=== PATIENT | female | born 1995 ===

== ENCOUNTER 2017-02-13 08:28 | Inpatient (IN) | payer MEDICAID ==
[2017-02-13 09:46] LABS: BASO % 0.5 % (0.0-2.0); EOS # 0.6 K/uL (0.0-0.7); EOS % 7.1 % (0.0-4.0); LYMPH # 2.3 K/uL (1.0-4.3); LYMPH % 29.2 % (20.0-40.0); MEAN CELL VOLUME 81.2 fL (81.0-99.0); MEAN CORPUSCULAR HEMOGLOBIN 27.1 pg (27.0-31.0); MEAN CORPUSCULAR HGB CONC 33.3 g/dL (33.0-37.0); MEAN PLATELET VOLUME 7.2 fL (7.2-11.7); MONO # 0.4 K/uL (0.0-0.8); MONO % 4.5 % (0.0-10.0); NRBC % 0.1 % (0.0-2.0); WHITE BLOOD COUNT 7.8 K/uL (4.8-10.8)
[2017-02-13 09:55] LABS: RBC URINE 21 /hpf (0-3); URINE BACTERIA RARE (<OCC); URINE BILIRUBIN NEGATIVE (NEGATIVE); URINE BLOOD 1+ (NEGATIVE); URINE COLOR Yellow (YELLOW); URINE GLUCOSE (UA) NORMAL (Normal); URINE KETONE TRACE mg/dL (NEGATIVE); URINE LEUKOCYTE ESTERASE NEG Leu/uL (Negative); URINE PROTEIN NEGATIVE (NEGATIVE); URINE UROBILINOGEN NORMAL mg/dL (0.2-1.0); WBC URINE 4 /hpf (0-5)
[2017-02-13 10:02] LABS: CHLORIDE 99 mmol/L (98-107); POTASSIUM 3.8 mmol/L (3.6-5.2); SODIUM 140 mmol/L (132-148)
[2017-02-13 10:04] LABS: AST/SGOT 45 U/L (14-36); BILIRUBIN,TOTAL 0.6 mg/dL (0.2-1.3); CARBON DIOXIDE 25 mmol/L (22-30); GFR AFRICAN-AMERICAN > 60
[2017-02-13 10:05] LABS: ALB/GLOB RATIO 1.3 (1.0-2.1); ALKALINE PHOSPHATASE 85 U/L (38-126); ALT/SGPT 52 U/L (9-52); BLOOD UREA NITROGEN 4 mg/dL (7-17); CALCIUM 8.7 mg/dl (8.6-10.4); GLUCOSE,RANDOM 102 mg/dL (65-105); TOTAL PROTEIN 8.4 g/dL (6.3-8.3)
--- NOTE | 2017-02-13 10:07 | C.PDOC ---
History Of Present Illness 21 y/o female presents to the ED complaining of increasing rash to the right elbow. She started that it started out small but she scratched it and it has been increasing in size. Patient reports that she saw her PMD who started her on two antibiotics approximately one week ago with no resolution. Patient denies fever, shortness of breath, or other complaints. Chief Complaint (Nursing): Allergic Reaction History Per: Patient History/Exam Limitations: no limitations Onset/Duration Of Symptoms: Days, Gradual, Persistent Current Symptoms Are (Timing): Worse Possible Cause: Unknown Associated Symptoms: Skin Rash Home/EMS Treatment: Other (antibiotics from PMD) Recent travel outside of the [place]: No Past Medical History Reviewed: Historical Data, Nursing Documentation, Vital Signs Vital Signs: Last Vital Signs Temp 97.5 F L 02/13/17 08:32 Pulse 110 H 02/13/17 08:32 Resp 16 02/13/17 08:32 BP 114/83 02/13/17 08:32 Pulse Ox 97 02/13/17 11:14 - Medical History PMH: Hypothyroidism Surgical History: No Surg Hx Family History: States: Unknown Family Hx - Social History Hx Tobacco Use: No Hx Alcohol Use: No Hx Substance Use: No - Immunization History Hx Tetanus Toxoid Vaccination: No Hx Influenza Vaccination: No Hx Pneumococcal Vaccination: No Review Of Systems Except As Marked, All Systems Reviewed And Found Negative. Constitutional: Negative for: Fever Respiratory: Negative for: Shortness of Breath Skin: Positive for: Rash (right elbow) Physical Exam - Physical Exam Appears: Non-toxic, No Acute Distress Skin: Warm, Dry Head: Atraumatic, Normacephalic Neck: Normal ROM Chest: Symmetrical Cardiovascular: Rhythm Regular Respiratory: Normal Breath Sounds, No Rales, No Rhonchi, No Wheezing Extremity: Other (scaley rash to right elbow, warm to touch w/ slight decreased ROM in the right elbow) Pulses: Left Radial: Normal, Right Radial: Normal Neurological/Psych: Oriented x3, Normal Speech, Normal Cognition, Normal Sensation ED Course And Treatment - Laboratory Results Result Diagrams: 02/13/17 09:41 02/13/17 09:41 O2 Sat by Pulse Oximetry: 97 (ra) Pulse Ox Interpretation: Normal Medical Decision Making Medical Decision Making: Plan: * Blood Work * Blood Culture * Urinalysis, Urine HCG * Urine Culture Case discussed with Dr. Hutton who requests admission. Disposition - Disposition Disposition Time: 10:10 Condition: STABLE - Clinical Impression Clinical Impression: Cellulitis of right upper extremity - Scribe Statement The provider has reviewed the documentation as recorded by the Scribe (Ayala Caceres) Provider Attestation: All medical record entries made by the Scribe were at my direction and personally dictated by me. I have reviewed the chart and agree that the record accurately reflects my personal performance of the history, physical exam, medical decision making, and the department course for this patient. I have also personally directed, reviewed, and agree with the discharge instructions and disposition.
[2017-02-13] MEDS ORDERED: Oxycodone/Acetaminophen 5/325 mg Tab PO PRN (12:27)
[2017-02-13] MEDS: Sodium Chloride 0.9% 1,000 ML IV SCH (14:11)
[2017-02-13] MEDS ORDERED: Enoxaparin 40 mg Syringe ONE (15:01)
[2017-02-13] MEDS: Enoxaparin 40 mg Syringe SC SCH (15:08)
--- NOTE | 2017-02-13 18:47 | CP.PCM.HP ---
History of Present Illness - History of Present Illness History of Present Illness: 21 years old female patient with past medical history of hypothyroidism presents to the emergency department with complaint of increasing right elbow rash. Patient showed PCP started on antibiotics whivh didnt resolve rash. No complaints No any other past medical history Present on Admission - Present on Admission Any Indicators Present on Admission: No Past Patient History - Past Social History Smoking Status: Never Smoked - ENDOCRINE/METABOLIC Hx Hypothyroidism: Yes - PSYCHIATRIC Hx Substance Use: No - SURGICAL HISTORY Hx Surgeries: No - ANESTHESIA Hx Anesthesia: No Meds Home Medications: Home Medication List Medication Instructions Recorded Confirmed Type DiphenhydrAMINE [Benadryl] 50 mg PO Q8 PRN #15 cap 02/18/17 Rx Sulfamethoxazole/Trimethoprim 1 tab PO Q12 #20 tab 02/18/17 Rx [Bactrim DS Tab] Allergies/Adverse Reactions: Allergies Allergy/AdvReac Type Severity Reaction Status Date / Time amoxicillin trihydrate Allergy Verified 02/13/17 08:34 [From Augmentin] clindamycin Allergy Verified 02/13/17 08:36 potassium clavulanate Allergy Verified 02/13/17 08:34 [From Augmentin] Results - Vital Signs Recent Vital Signs: Last Vital Signs Temp 98.7 F 02/13/17 17:30 Pulse 101 H 02/13/17 17:30 Resp 20 02/13/17 17:30 BP 108/70 02/13/17 17:30 Pulse Ox 108 H 02/13/17 17:30 - Labs Result Diagrams: 02/18/17 07:10 02/18/17 07:10 Assessment & Plan (1) Abscess, elbow Status: Acute (2) Cellulitis of right arm Status: Acute (3) Drug-induced skin rash Status: Acute - Assessment and Plan (Free Text) Plan: septic wokr up protnix lovenox vanco vanco level zosyn no othe rocmpalints
[2017-02-13] MEDS ORDERED: Piperacillin/Tazobact 3.375 GM in Sodium Chloride 100 ML IVPB SCH (19:00)
[2017-02-13] MEDS: Vancomycin 1 gm/NS 200 ml 200 ML IVPB SCH (23:01)
[2017-02-14] MEDS: Aztreonam 1 GM in Sodium Chloride 0.9% 100 ML IVPB SCH ×5 (01:18→19:47)
[2017-02-14] MEDS ORDERED: Pneumococcal 23-Valent Vaccine IM ONE (02:21)
[2017-02-14] MEDS: Sodium Chloride 0.9% 1,000 ML IV SCH ×2 (06:00→21:48)
[2017-02-14 07:55] LABS: BASO % 0.2 % (0.0-2.0); EOS # 0.4 K/uL (0.0-0.7); EOS % 5.4 % (0.0-4.0); HEMATOCRIT 38.9 % (34.0-47.0); LYMPH # 3.6 K/uL (1.0-4.3); MEAN CELL VOLUME 81.6 fL (81.0-99.0); MEAN CORPUSCULAR HEMOGLOBIN 26.6 pg (27.0-31.0); MEAN CORPUSCULAR HGB CONC 32.6 g/dL (33.0-37.0); MEAN PLATELET VOLUME 7.4 fL (7.2-11.7); MONO # 0.5 K/uL (0.0-0.8); MONO % 5.9 % (0.0-10.0); WHITE BLOOD COUNT 7.8 K/uL (4.8-10.8)
[2017-02-14 08:09] LABS: ALB/GLOB RATIO 1.2 (1.0-2.1); BILIRUBIN,DIRECT 0.8 mg/dL (0.0-0.4); BILIRUBIN,TOTAL 0.8 mg/dL (0.2-1.3); TOTAL PROTEIN 7.6 g/dL (6.3-8.3)
[2017-02-14] MEDS: Enoxaparin 40 mg Syringe SC SCH (09:09)
[2017-02-14] MEDS: Vancomycin 1 gm/NS 200 ml 200 ML IVPB SCH ×2 (09:55→22:41)
--- NOTE | 2017-02-14 13:22 | CP.PCM.CON ---
History of Present Illness - History of Present Illness History of Present Illness: HPI; 21 y/o female presents to the ED complaining of increasing rash to the right elbow. She states that it started out as a small pimple but she scratched it and it has been increasing in size. Patient reports that she saw her PMD who started her on two antibiotics approximately one week ago with no resolution. Patient denies fever, shortness of breath, or other complaints.admits to having a sore throat a week ago. Patient was started on IV vancomycin and IV Zosyn but Zosyn was held in view of patient's stating that she is allergic to amoxicillin. Infectious disease consultation requested therefore by the primary M.D. PATIENT DENIES ANY HEADACHES, NAUSEA OR VOMITING OR DIARRHEA. PATIENT DENIES ANY RECENT TRAVEL/CAMPING. DENIES INSECT BITES. PATIENT DENIES ANY HISTORY OFF HEPATITIS,STDS OR ECZEMA IN THE PAST. PT DOES HAVE HX OF SECONDARY AMENORRHOEA SINCE SEP 2016.HER DRBobTOLD HER SHE HAS HX OF HORMONAL IMBALANCE AND NEEDS TO SEE RIBBER. ALLERGY PMH: Hypothyroidism Surgical History: No Surg Hx Family History: States: Unknown Family Hx - Social History Hx Tobacco Use: No Hx Alcohol Use: No Hx Substance Use: No - Immunization History Hx Tetanus Toxoid Vaccination: No Hx Influenza Vaccination: No Hx Pneumococcal Vaccination: No Review of Systems - Constitutional Constitutional: absent: Chills, Fever - EENT Eyes: absent: Change in Vision, Floaters Nose/Mouth/Throat: absent: Dysphagia, Mouth Lesions, Sore Throat, Facial Pain - Cardiovascular Cardiovascular: absent: Chest Pain, Dyspnea - Respiratory Respiratory: absent: Cough, Chest Congestion - Gastrointestinal Gastrointestinal: absent: Diarrhea, Nausea, Vomiting - Genitourinary Genitourinary: absent: Dysuria, Urinary Hesitance, Freq UTI, Hx /Renal Surgery - Reproductive: Female Reproductive:Female: Cycle Variable, No Menses for 6 Months, Spotting Between Cycles. absent: Pelvic Pain, Vaginal Discharge - Musculoskeletal Musculoskeletal: absent: Arthralgias, Muscle Weakness, Numbness, Radiating Pain into Limb, Tingling - Integumentary Integumentary: Skin Ulcer (RIGHT ELBOW WITH A RASH WHICH IS SCALY AND DRY. CELLULITIS EXTENDING TO THE FOREARM AND SOFT TISSUE EDEMA.). absent: Alopecia, Change in Hair, Change in Nails - Neurological Neurological: absent: Dizziness, Headaches, Paresthesias - Psychiatric Psychiatric: absent: Depression - Endocrine Endocrine: As Per HPI - Hematologic/Lymphatic Hematologic: As Per HPI. absent: Easy Bruising, Lymphadenopathy Past Patient History - Past Medical History & Family History Past Medical History?: Yes - Past Social History Smoking Status: Never Smoked - CARDIAC Hx Cardiac Disorders: No - PULMONARY Hx Respiratory Disorders: No - NEUROLOGICAL Hx Neurological Disorder: No - HEENT Hx HEENT Problems: No - RENAL Hx Chronic Kidney Disease: No - ENDOCRINE/METABOLIC Hx Hypothyroidism: Yes - HEMATOLOGICAL/ONCOLOGICAL Hx Blood Disorders: No - INTEGUMENTARY Hx Dermatological Problems: No - MUSCULOSKELETAL/RHEUMATOLOGICAL Hx Musculoskeletal Disorders: No Hx Falls: No - GASTROINTESTINAL Hx Constipation: Yes - GENITOURINARY/GYNECOLOGICAL Hx Genitourinary Disorders: No - PSYCHIATRIC Hx Psychophysiologic Disorder: No Hx Substance Use: No - SURGICAL HISTORY Hx Surgeries: No - ANESTHESIA Hx Anesthesia: No Meds Allergies/Adverse Reactions: Allergies Allergy/AdvReac Type Severity Reaction Status Date / Time amoxicillin trihydrate Allergy Verified 02/13/17 08:34 [From Augmentin] clindamycin Allergy Verified 02/13/17 08:36 potassium clavulanate Allergy Verified 02/13/17 08:34 [From Augmentin] - Medications Medications: Current Medications Acetaminophen (Tylenol 325mg Tab) 650 mg PO Q6 PRN PRN Reason: Fever >100.4 F Diphenhydramine HCl (Benadryl) 25 mg PO Q8H PRN PRN Reason: Itching / Pruritus Last Admin: 02/14/17 06:42 Dose: 25 mg Docusate Sodium (Colace) 100 mg PO BID [facility] Last Admin: 02/14/17 09:11 Dose: Not Given Enoxaparin Sodium (Lovenox) 40 mg SC DAILY [facility] Last Admin: 02/14/17 09:09 Dose: 40 mg Sodium Chloride (Sodium Chloride 0.9%) 1,000 mls @ 60 mls/hr IV .[id number] [facility] Last Admin: 02/14/17 06:00 Dose: 60 mls/hr Vancomycin/Sodium Chloride (Vancocin) 200 mls @ 166.7 mls/hr IVPB Q12H [facility] Last Admin: 02/14/17 09:55 Dose: 166.7 mls/hr Aztreonam 1 gm/ Sodium (Chloride) 100 mls @ 100 mls/hr IVPB Q8H [facility] Last Admin: 02/14/17 07:51 Dose: 100 mls/hr Montelukast Sodium (Singulair) 10 mg PO HS [facility] Ondansetron HCl (Zofran Inj) 4 mg IVP Q6 PRN PRN Reason: Nausea/Vomiting Oxycodone/Acetaminophen (Percocet 5/325 Mg Tab) 1 tab PO Q4 PRN PRN Reason: Pain, moderate (4-7) Stop: 02/16/17 12:28 Pneumococcal Polyvalent Vaccine (Pneumovax 23 Vaccine) 0.5 ml IM .ONCE ONE Stop: 02/16/17 10:01 Sucralfate (Carafate Tab) 1 gm PO BIDAC [facility] Last Admin: 02/14/17 06:42 Dose: Not Given Physical Exam - Constitutional Appears: No Acute Distress - Head Exam Head Exam: NORMAL INSPECTION - Eye Exam Eye Exam: EOMI, PERRL - ENT Exam ENT Exam: Normal Oropharynx - Neck Exam Neck exam: Positive for: Normal Inspection - Respiratory Exam Respiratory Exam: Clear to Auscultation Bilateral - Cardiovascular Exam Cardiovascular Exam: REGULAR RHYTHM, +S1, +S2 - GI/Abdominal Exam GI & Abdominal Exam: Normal Bowel Sounds, Soft. absent: Organomegaly, Tenderness - Extremities Exam Extremities exam: Positive for: normal capillary refill, pedal pulses present. Negative for: calf tenderness, pedal edema - Neurological Exam Neurological exam: Alert, CN II-XII Intact, Oriented x3, Reflexes Normal - Psychiatric Exam Psychiatric exam: Normal Mood - Skin Skin Exam: Normal Color, Rash (RT.ELBOW SCALY RASH WITH CELLULITUS AND EDEMA EXTENDING TO THE FOREARMAND SWELLIND AND ST. EDEMA. DEC. ROM AT ELBOW.), Warm Results - Vital Signs Recent Vital Signs: Last Vital Signs Temp 97.6 F 02/14/17 09:00 Pulse 70 02/14/17 09:00 Resp 20 02/14/17 09:00 BP 113/76 02/14/17 09:00 Pulse Ox 100 02/14/17 09:00 - Labs Result Diagrams: 02/14/17 07:41 02/13/17 09:41 Labs: Laboratory Results - last 24 hr 02/14/17 07:41 WBC 7.8 RBC 4.76 Hgb 12.7 Hct 38.9 MCV 81.6 MCH 26.6 L MCHC 32.6 L RDW 15.0 H Plt Count 389 MPV 7.4 Neut % (Auto) 42.5 L Lymph % (Auto) 46.0 H [place] % (Auto) 5.9 Eos % (Auto) 5.4 H Baso % (Auto) 0.2 Neut # 3.3 Lymph # 3.6 [place] # 0.5 Eos # 0.4 Baso # 0.0 ESR 25 H Total Bilirubin 0.8 Direct Bilirubin 0.8 H AST 33 ALT 46 Alkaline Phosphatase 79 Total Protein 7.6 Albumin 4.2 Globulin 3.4 Albumin/Globulin Ratio 1.2 - Imaging and Cardiology MRI RUE Status: Report reviewed by me Assessment & Plan (1) Cellulitis of right arm Status: Acute (2) Abscess, elbow Status: Acute - Assessment and Plan (Free Text) Plan: PLAN; pANCULTURES. ESR, CRP. MRSA SCREEN THROAT CULTURE CONTINUE iv vANCO 1 G EVERY 12 HOURLY 02/13/17. WILL ADD IV AZACTAM 1 G EVERY 8 HOURLY FOR GRAM-NEGATIVE COVERAGE 02/13/17. SURGICAL CONSULT FOR I &D .-SEE MRI REPORT BACTOBAN OINTMENT LOCALLY TID. F/U LFTS fOLLOW-UP CULTURES TO ADJUST ANTIBIOTICS.
--- NOTE | 2017-02-14 14:39 | CP.PCM.PN ---
Subjective - Date & Time of Evaluation Date of Evaluation: 02/14/17 Time of Evaluation: 10:20 - Subjective Subjective: clinically same iv abx in progress Objective - Vital Signs/Intake and Output Vital Signs (last 24 hours): Temp Pulse Resp BP Pulse Ox 97.6 F 70 20 113/76 100 02/14/17 09:00 02/14/17 09:00 02/14/17 09:00 02/14/17 09:00 02/14/17 09:00 Intake and Output: 02/14/17 02/14/17 06:59 18:59 Intake Total 800 770 Balance 800 770 - Medications Medications: Current Medications Acetaminophen (Tylenol 325mg Tab) 650 mg PO Q6 PRN PRN Reason: Fever >100.4 F Diphenhydramine HCl (Benadryl) 25 mg PO Q8H PRN PRN Reason: Itching / Pruritus Last Admin: 02/14/17 06:42 Dose: 25 mg Docusate Sodium (Colace) 100 mg PO BID [facility] Last Admin: 02/14/17 09:11 Dose: Not Given Enoxaparin Sodium (Lovenox) 40 mg SC DAILY [facility] Last Admin: 02/14/17 09:09 Dose: 40 mg Sodium Chloride (Sodium Chloride 0.9%) 1,000 mls @ 60 mls/hr IV .[id number] [facility] Last Admin: 02/14/17 06:00 Dose: 60 mls/hr Vancomycin/Sodium Chloride (Vancocin) 200 mls @ 166.7 mls/hr IVPB Q12H [facility] Last Admin: 02/14/17 09:55 Dose: 166.7 mls/hr Aztreonam 1 gm/ Sodium (Chloride) 100 mls @ 100 mls/hr IVPB Q8H [facility] Last Admin: 02/14/17 07:51 Dose: 100 mls/hr Montelukast Sodium (Singulair) 10 mg PO HS [facility] Ondansetron HCl (Zofran Inj) 4 mg IVP Q6 PRN PRN Reason: Nausea/Vomiting Oxycodone/Acetaminophen (Percocet 5/325 Mg Tab) 1 tab PO Q4 PRN PRN Reason: Pain, moderate (4-7) Stop: 02/16/17 12:28 Pneumococcal Polyvalent Vaccine (Pneumovax 23 Vaccine) 0.5 ml IM .ONCE ONE Stop: 02/16/17 10:01 Sucralfate (Carafate Tab) 1 gm PO BIDAC [facility] Last Admin: 02/14/17 06:42 Dose: Not Given - Labs Labs: 02/14/17 07:41 - Constitutional Appears: Well - Head Exam Head Exam: ATRAUMATIC, NORMAL INSPECTION, NORMOCEPHALIC - ENT Exam ENT Exam: Mucous Membranes Moist, Normal Exam - Neck Exam Neck Exam: Full ROM, Normal Inspection. absent: Lymphadenopathy - Respiratory Exam Respiratory Exam: Decreased Breath Sounds - Cardiovascular Exam Cardiovascular Exam: REGULAR RHYTHM, +S1, +S2 - GI/Abdominal Exam GI & Abdominal Exam: Soft, Diminished Bowel Sounds - Rectal Exam Rectal Exam: Deferred - Neurological Exam Neurological Exam: Alert, Awake, Oriented x3 Assessment and Plan (1) Abscess, elbow Status: Acute (2) Cellulitis of right arm Status: Acute (3) Drug-induced skin rash Status: Acute - Assessment and Plan (Free Text) Plan: iv vanco f/u with ID dr juarez mx as ordered f/u labs f/u cultures
--- NOTE | 2017-02-14 18:17 | MRI ---
MRI right elbow History: Infection. Cellulitis. Comparison: None available. Technique: Multi-echo multiplanar sequences were performed through the right elbow without the use of intravenous contrast. Findings: Prominent reticulation and edema seen within the circumferential subcutaneous soft tissues suggestive for a severe cellulitis. Within the posterior and lateral elbow, there is more confluent reticulation and edema with a fluid collection at that level measuring 5.7 x 2.4 x 7.5 centimeters. This may represent developing phlegmon and or developing abscess collection. No discrete organized abscess collection is noted at this junction however developing abscess cannot be excluded. The visualized osseous structures are preserved. No evidence of gross osteomyelitis. No significant elbow joint effusion. Visualized musculature appears preserved. Biceps and brachialis tendon insertions are preserved. Triceps tendon insertion is preserved. Common extensor tendon as well as the adjacent radial collateral and lateral ulnar collateral ligaments are preserved. Common flexor tendon as well as the adjacent ulnar collateral ligament is preserved. Impression: 1. Prominent reticulation and edema seen within the circumferential subcutaneous soft tissues suggestive for a severe cellulitis. Within the posterior and lateral elbow, there is more confluent reticulation and edema with a fluid collection at that level measuring 5.7 x 2.4 x 7.5 centimeters. This may represent developing phlegmon and or developing abscess collection. No discrete organized abscess collection is noted at this junction however developing abscess cannot be excluded. 2. The visualized osseous structures are preserved. No evidence of gross osteomyelitis. 3. No significant elbow joint effusion. 4. Visualized musculature appears preserved.
[2017-02-15] MEDS: Aztreonam 1 GM in Sodium Chloride 0.9% 100 ML IVPB SCH ×3 (00:06→16:58)
[2017-02-15] MEDS: Pantoprazole 40 mg EC Tab PO SCH (10:35)
[2017-02-15] MEDS: Vancomycin 1 gm/NS 200 ml 200 ML IVPB SCH ×2 (10:36→22:25)
--- NOTE | 2017-02-15 12:09 | CON ---
DATE: 02/15/2017 I was called in to evaluate this patient by Dr. Farhana Melendez. The patient is admitted with the diagnosis of cellulitis of the right elbow, failed antibiotic therapy. The patient gives history of having experienced pain and swelling and itching of the right elbow, and she has not given a history of injury to the elbow. She was seen by primary care physician who gave her antibiotics. The swelling and the redness persisted. She never complained of much pain. PHYSICAL EXAMINATION: Revealed 2+ swelling of the elbow, and there is some erythema which seems to be resolving around the elbow. Most of the swelling seems to be over the lateral epicondyle and proximal extensor muscle mass. Range of motion of the elbow is painful in the terminal 10 degrees of flexion, and 50 degrees of extensor. No significant swelling noted over olecranonbursal area. Once again, range of motion of the elbow is fairly painless. The patient's lab results are reviewed. Also the consultation by Dr. Nuzhat Harrington is reviewed. MRI reports some swelling of the soft tissues, but no significant fluid collection noted around the elbow, but changes suggestive of cellulitis. No evidence of olecranon bursal collection is noted. DIAGNOSIS: Cellulitis of elbow. RECOMMENDATION: Continue the present treatment including antibiotic treatment. At this time, the patient does not need surgical intervention. We will follow. We will offer ice packs to the elbow, as ice seems to relieve her itching. She also takes Benadryl Bonnie Mckinney MD cc: [id number] TT: 02/15/2017 12:08:48 Confirmation # [id number] Dictation # [id number] YOMAIRA
[2017-02-15] MEDS: Enoxaparin 40 mg Syringe SC SCH (14:18)
[2017-02-15] MEDS: Sodium Chloride 0.9% 1,000 ML IV SCH (14:19)
--- NOTE | 2017-02-15 15:18 | CP.PCM.PN ---
Subjective - Date & Time of Evaluation Date of Evaluation: 02/15/17 Time of Evaluation: 12:40 - Subjective Subjective: afebrile pt clinically same iv rx in progress dr juarez following Objective - Vital Signs/Intake and Output Vital Signs (last 24 hours): Temp Pulse Resp BP Pulse Ox 97.5 F L 67 20 100/70 99 02/15/17 08:00 02/15/17 08:00 02/15/17 08:00 02/15/17 08:00 02/15/17 08:00 Intake and Output: 02/15/17 02/15/17 06:59 18:59 Intake Total 1400 Balance 1400 - Medications Medications: Current Medications Acetaminophen (Tylenol 325mg Tab) 650 mg PO Q6 PRN PRN Reason: Fever >100.4 F Diphenhydramine HCl (Benadryl) 50 mg PO Q8 PRN PRN Reason: Itching / Pruritus Last Admin: 02/15/17 08:57 Dose: 50 mg Docusate Sodium (Colace) 100 mg PO BID [facility] Last Admin: 02/15/17 10:36 Dose: Not Given Enoxaparin Sodium (Lovenox) 40 mg SC DAILY [facility] Last Admin: 02/15/17 14:18 Dose: 40 mg Sodium Chloride (Sodium Chloride 0.9%) 1,000 mls @ 60 mls/hr IV .[id number] [facility] Last Admin: 02/15/17 14:19 Dose: Not Given Vancomycin/Sodium Chloride (Vancocin) 200 mls @ 166.7 mls/hr IVPB Q12H [facility] Last Admin: 02/15/17 10:36 Dose: 166.7 mls/hr Aztreonam 1 gm/ Sodium (Chloride) 100 mls @ 100 mls/hr IVPB Q8H [facility] Last Admin: 02/15/17 08:43 Dose: 100 mls/hr Montelukast Sodium (Singulair) 10 mg PO HS [facility] Last Admin: 02/14/17 21:01 Dose: 10 mg Mupirocin (Bactroban Ointment) 0 gm TOP TID [facility] Last Admin: 02/15/17 14:18 Dose: 1 applic Ondansetron HCl (Zofran Inj) 4 mg IVP Q6 PRN PRN Reason: Nausea/Vomiting Oxycodone/Acetaminophen (Percocet 5/325 Mg Tab) 1 tab PO Q4 PRN PRN Reason: Pain, moderate (4-7) Stop: 02/16/17 12:28 Pantoprazole Sodium (Protonix Ec Tab) 40 mg PO DAILY [facility] Last Admin: 02/15/17 10:35 Dose: 40 mg Pneumococcal Polyvalent Vaccine (Pneumovax 23 Vaccine) 0.5 ml IM .ONCE ONE Stop: 02/16/17 10:01 Sucralfate (Carafate Tab) 1 gm PO BIDAC [facility] Last Admin: 02/15/17 08:57 Dose: 1 gm - Labs Labs: 02/14/17 07:41 - Constitutional Appears: No Acute Distress - Head Exam Head Exam: ATRAUMATIC, NORMAL INSPECTION, NORMOCEPHALIC - Eye Exam Eye Exam: EOMI, Normal appearance, PERRL Pupil Exam: NORMAL ACCOMODATION, PERRL - ENT Exam ENT Exam: Mucous Membranes Moist - Neck Exam Neck Exam: Full ROM - Respiratory Exam Respiratory Exam: Decreased Breath Sounds - Cardiovascular Exam Cardiovascular Exam: REGULAR RHYTHM, +S2, +S4 - GI/Abdominal Exam GI & Abdominal Exam: Soft, Diminished Bowel Sounds - Rectal Exam Rectal Exam: Deferred - Neurological Exam Neurological Exam: Alert, Awake, Oriented x3 Assessment and Plan (1) Abscess, elbow Status: Acute (2) Cellulitis of right arm Status: Acute (3) Drug-induced skin rash Status: Acute - Assessment and Plan (Free Text) Plan: forpossble abscess iv aztrronam vanco vanco level folow up with consultants saumya as ordered
--- NOTE | 2017-02-16 09:01 | CP.PCM.PN ---
<Ash Brizuela - Last Filed: 02/16/17 15:35> Subjective - Date & Time of Evaluation Date of Evaluation: 02/16/17 Time of Evaluation: 08:15 - Subjective Subjective: Medicine Note- Dr. Melendez's service Patient was seen and examined at bedside. Patient reports that since yesterday, she's noticed bumps developing along her right arm, dorsal side, that wasnt there before. She says the bumps resemble the appearance of the rash she had before her cellulitis began. She says they are not painful but can be itchy at times. Patient reports no additional acute complaints. Objective - Vital Signs/Intake and Output Vital Signs (last 24 hours): Temp Pulse Resp BP Pulse Ox 98.1 F 70 20 110/70 98 02/16/17 00:18 02/16/17 00:18 02/16/17 00:18 02/16/17 00:18 02/16/17 00:18 Intake and Output: 02/16/17 02/16/17 06:59 18:59 Intake Total 1520 Balance 1520 - Medications Medications: Current Medications Acetaminophen (Tylenol 325mg Tab) 650 mg PO Q6 PRN PRN Reason: Fever >100.4 F Diphenhydramine HCl (Benadryl) 50 mg PO Q8 PRN PRN Reason: Itching / Pruritus Last Admin: 02/15/17 21:51 Dose: 50 mg Docusate Sodium (Colace) 100 mg PO BID [facility] Last Admin: 02/15/17 17:06 Dose: Not Given Enoxaparin Sodium (Lovenox) 40 mg SC DAILY [facility] Last Admin: 02/15/17 14:18 Dose: 40 mg Sodium Chloride (Sodium Chloride 0.9%) 1,000 mls @ 60 mls/hr IV .[id number] [facility] Last Admin: 02/15/17 14:19 Dose: Not Given Vancomycin/Sodium Chloride (Vancocin) 200 mls @ 166.7 mls/hr IVPB Q12H [facility] Last Admin: 02/15/17 22:25 Dose: 166.7 mls/hr Aztreonam 1 gm/ Sodium (Chloride) 100 mls @ 100 mls/hr IVPB Q8H [facility] Last Admin: 02/15/17 16:58 Dose: 100 mls/hr Montelukast Sodium (Singulair) 10 mg PO HS [facility] Last Admin: 02/15/17 21:51 Dose: 10 mg Mupirocin (Bactroban Ointment) 0 gm TOP TID [facility] Last Admin: 02/15/17 17:05 Dose: 1 applic Ondansetron HCl (Zofran Inj) 4 mg IVP Q6 PRN PRN Reason: Nausea/Vomiting Oxycodone/Acetaminophen (Percocet 5/325 Mg Tab) 1 tab PO Q4 PRN PRN Reason: Pain, moderate (4-7) Stop: 02/16/17 12:28 Pantoprazole Sodium (Protonix Ec Tab) 40 mg PO DAILY [facility] Last Admin: 02/15/17 10:35 Dose: 40 mg Pneumococcal Polyvalent Vaccine (Pneumovax 23 Vaccine) 0.5 ml IM .ONCE ONE Stop: 02/16/17 10:01 Sucralfate (Carafate Tab) 1 gm PO BIDAC [facility] Last Admin: 02/15/17 16:59 Dose: 1 gm - Labs Labs: 02/14/17 07:41 - Constitutional Appears: Non-toxic, No Acute Distress - Head Exam Head Exam: ATRAUMATIC, NORMAL INSPECTION, NORMOCEPHALIC - Eye Exam Pupil Exam: NORMAL ACCOMODATION - ENT Exam ENT Exam: Mucous Membranes Moist - Respiratory Exam Respiratory Exam: Clear to Ausculation Bilateral, NORMAL BREATHING PATTERN. absent: Prolonged Expiratory Phase, Rales, Rhonchi, Wheezes - Cardiovascular Exam Cardiovascular Exam: REGULAR RHYTHM, +S1, +S2 - GI/Abdominal Exam GI & Abdominal Exam: Soft, Normal Bowel Sounds. absent: Tenderness, Diminished Bowel Sounds, Hypoactive Bowel Sounds - Extremities Exam Extremities Exam: Normal Capillary Refill, Normal Inspection - Neurological Exam Neurological Exam: Alert, Awake, Oriented x3 - Psychiatric Exam Psychiatric exam: Normal Affect, Normal Mood - Skin Skin Exam: Dry, Intact, Normal Color, Warm Assessment and Plan - Assessment and Plan (Free Text) Assessment: Severe Cellulitis of Right Upper Extremity Held Aztreonam 1gm IVPB Q8h (started 02/14/17) due to possible allergic reaction Discussed with ID, will start Bactrim DS Q12h. If patient tolerates it, will be discharged with Bactrim DS Q12h x 10 days Continue Vanco 1gm IVPB Q12h (started 02/13/17) ID consult- Dr. Harrington Ortho Consult- Dr. Mckinney- no surgical intervention needed at this time. Benadryl 50mg PO Q8h PRN Oxycodone 1 tab PO Q4h PRN Mupirocin 2% ointment TID MRI Upper Extremity- 02/14/17- Prominent reticulation and edema seen within the circumferential subcutaneous soft tissues suggestive for a severe cellulitis. Within the posterior and lateral elbow, there is more confluent reticulation and edema with a fluid collection at that level measuring 5.7 x 2.4 x 7.5cm. This may represent developing phlegmon and or developing abscess collection. ( Please see full report) Transaminitis f/u Hep panel AST/ALT: 53/55 Prophylactic Measures Lovenox 40mg SC Daily Protonix 40mg PO Daily <Marcelino Melendez S - Last Filed: 02/16/17 20:17> Objective - Vital Signs/Intake and Output Vital Signs (last 24 hours): Temp Pulse Resp BP Pulse Ox 98.2 F 77 20 100/63 99 02/16/17 16:00 02/16/17 16:00 02/16/17 16:00 02/16/17 16:00 02/16/17 16:00 Intake and Output: 02/16/17 02/17/17 18:59 06:59 Intake Total 800 Balance 800 - Medications Medications: Current Medications Acetaminophen (Tylenol 325mg Tab) 650 mg PO Q6 PRN PRN Reason: Fever >100.4 F Diphenhydramine HCl (Benadryl) 50 mg PO Q8 PRN PRN Reason: Itching / Pruritus Last Admin: 02/16/17 11:00 Dose: 50 mg Docusate Sodium (Colace) 100 mg PO BID [facility] Last Admin: 02/16/17 17:44 Dose: Not Given Enoxaparin Sodium (Lovenox) 40 mg SC DAILY [facility] Last Admin: 02/16/17 10:59 Dose: 40 mg Sodium Chloride (Sodium Chloride 0.9%) 1,000 mls @ 60 mls/hr IV .[id number] [facility] Last Admin: 02/16/17 09:29 Dose: 60 mls/hr Vancomycin/Sodium Chloride (Vancocin) 200 mls @ 140 mls/hr IVPB Q12H [facility] Stop: 02/21/17 22:01 Montelukast Sodium (Singulair) 10 mg PO HS [facility] Last Admin: 02/15/17 21:51 Dose: 10 mg Mupirocin (Bactroban Ointment) 0 gm TOP TID [facility] Last Admin: 02/16/17 18:06 Dose: 1 applic Ondansetron HCl (Zofran Inj) 4 mg IVP Q6 PRN PRN Reason: Nausea/Vomiting Pantoprazole Sodium (Protonix Ec Tab) 40 mg PO DAILY [facility] Last Admin: 02/16/17 10:59 Dose: 40 mg Sucralfate (Carafate Tab) 1 gm PO BIDAC [facility] Last Admin: 02/16/17 17:30 Dose: 1 gm Trimethoprim/Sulfamethoxazole (Bactrim Ds Tab) 1 tab PO Q12 [facility] Last Admin: 02/16/17 14:39 Dose: 1 tab - Labs Labs: 02/16/17 11:27 02/16/17 11:27 Attending/Attestation - Attestation I have personally seen and examined this patient.: Yes I have fully participated in the care of the patient.: Yes I have reviewed all pertinent clinical information, including history, physical exam and plan: Yes Notes (Text): 02/16/17 20:17 case seen an ddiscussed with staff and resident mx as ordered
[2017-02-16] MEDS: Sodium Chloride 0.9% 1,000 ML IV SCH ×2 (09:29→23:50)
[2017-02-16] MEDS ORDERED: Pneumococcal 23-Valent Vaccine IM ONE (10:00)
[2017-02-16] MEDS: Enoxaparin 40 mg Syringe SC SCH (10:59)
[2017-02-16] MEDS: Pantoprazole 40 mg EC Tab PO SCH (10:59)
[2017-02-16] MEDS: Vancomycin 1 gm/NS 200 ml 200 ML IVPB SCH (11:02)
[2017-02-16 11:39] LABS: BASO % 0.5 % (0.0-2.0); EOS # 0.6 K/uL (0.0-0.7); EOS % 7.3 % (0.0-4.0); HEMATOCRIT 37.8 % (34.0-47.0); LYMPH # 2.8 K/uL (1.0-4.3); LYMPH % 34.7 % (20.0-40.0); MEAN CELL VOLUME 81.4 fL (81.0-99.0); MEAN CORPUSCULAR HGB CONC 33.2 g/dL (33.0-37.0); MEAN PLATELET VOLUME 7.6 fL (7.2-11.7); MONO # 0.4 K/uL (0.0-0.8); MONO % 5.1 % (0.0-10.0); RED CELL DISTRIBUTION WIDTH 14.8 % (11.5-14.5); WHITE BLOOD COUNT 8.1 K/uL (4.8-10.8)
[2017-02-16 12:14] LABS: CHLORIDE 100 mmol/L (98-107); SODIUM 138 mmol/L (132-148)
[2017-02-16 12:16] LABS: AST/SGOT 53 U/L (14-36); BILIRUBIN,TOTAL 0.4 mg/dL (0.2-1.3); CARBON DIOXIDE 23 mmol/L (22-30); GFR AFRICAN-AMERICAN > 60
[2017-02-16 12:17] LABS: ALB/GLOB RATIO 1.2 (1.0-2.1); ALKALINE PHOSPHATASE 75 U/L (38-126); ALT/SGPT 55 U/L (9-52); BLOOD UREA NITROGEN 5 mg/dL (7-17); CALCIUM 8.7 mg/dl (8.6-10.4); GLUCOSE,RANDOM 78 mg/dL (65-105); TOTAL PROTEIN 7.4 g/dL (6.3-8.3)
--- NOTE | 2017-02-16 13:07 | CP.PCM.PN ---
Subjective - Date & Time of Evaluation Date of Evaluation: 02/16/17 Time of Evaluation: 13:07 - Subjective Subjective: C/O PRURITIC ITCHY RASH LEFT ARM,WRIST,ANTERIOR CHEST. RIGHT ARM/ELBOW SWELLING MUCH LESS. SCALY PAPULAR RASH SEEN AROUND RIGHT ELBOW AND FOREARM. IMPROVING CELLULITIS RIGHT FOREARM AND ELBOW. SEEN BY ORTHOPEDIC DR. NAVA,-NO SURGICAL INTERVENTION PER ORTHO NOTED DENIES ANY FEVER, CHILLS. iNCREASING RANGE OF MOTION RIGHT ELBOW. GEN ,RASH ? AZACTAM. ON HOLD SINCE LAST NIGHT PT ON IV VANCOMYCIN 1GM Q 12HRLY Objective - Vital Signs/Intake and Output Vital Signs (last 24 hours): Temp Pulse Resp BP Pulse Ox 98.1 F 70 20 110/70 98 02/16/17 00:18 02/16/17 00:18 02/16/17 00:18 02/16/17 00:18 02/16/17 00:18 Intake and Output: 02/16/17 02/16/17 06:59 18:59 Intake Total 1520 Balance 1520 - Medications Medications: Current Medications Acetaminophen (Tylenol 325mg Tab) 650 mg PO Q6 PRN PRN Reason: Fever >100.4 F Diphenhydramine HCl (Benadryl) 50 mg PO Q8 PRN PRN Reason: Itching / Pruritus Last Admin: 02/16/17 11:00 Dose: 50 mg Docusate Sodium (Colace) 100 mg PO BID [facility] Last Admin: 02/16/17 09:45 Dose: Not Given Enoxaparin Sodium (Lovenox) 40 mg SC DAILY [facility] Last Admin: 02/16/17 10:59 Dose: 40 mg Sodium Chloride (Sodium Chloride 0.9%) 1,000 mls @ 60 mls/hr IV .[id number] [facility] Last Admin: 02/16/17 09:29 Dose: 60 mls/hr Aztreonam 1 gm/ Sodium (Chloride) 100 mls @ 100 mls/hr IVPB Q8H [facility] Last Admin: 02/15/17 16:58 Dose: 100 mls/hr Vancomycin/Sodium Chloride (Vancocin) 200 mls @ 100 mls/hr IVPB Q12H [facility] Montelukast Sodium (Singulair) 10 mg PO HS [facility] Last Admin: 02/15/17 21:51 Dose: 10 mg Mupirocin (Bactroban Ointment) 0 gm TOP TID [facility] Last Admin: 02/16/17 11:01 Dose: 1 applic Ondansetron HCl (Zofran Inj) 4 mg IVP Q6 PRN PRN Reason: Nausea/Vomiting Pantoprazole Sodium (Protonix Ec Tab) 40 mg PO DAILY [facility] Last Admin: 02/16/17 10:59 Dose: 40 mg Sucralfate (Carafate Tab) 1 gm PO BIDAC [facility] Last Admin: 02/16/17 09:03 Dose: 1 gm - Labs Labs: 02/16/17 11:27 02/16/17 11:27 - Constitutional Appears: No Acute Distress - Head Exam Head Exam: NORMAL INSPECTION - Eye Exam Eye Exam: EOMI, PERRL. absent: Scleral icterus - ENT Exam ENT Exam: Mucous Membranes Moist - Neck Exam Neck Exam: Normal Inspection - Respiratory Exam Respiratory Exam: Clear to Ausculation Bilateral - Cardiovascular Exam Cardiovascular Exam: REGULAR RHYTHM, +S1, +S2 - GI/Abdominal Exam GI & Abdominal Exam: Soft, Normal Bowel Sounds. absent: Organomegaly - Extremities Exam Extremities Exam: Normal Capillary Refill. absent: Calf Tenderness, Pedal Edema - Neurological Exam Neurological Exam: Awake, CN II-XII Intact, Normal Gait, Oriented x3 Neuro motor strength exam: Left Upper Extremity: 5, Right Upper Extremity: 4, Left Lower Extremity: 4, Right Lower Extremity: 4 Additional comments: RT. ELBOW WITH A SCALY RASH/AND CELLULITIS FOREARM iNCREASING RANGE OF MOTION RIGHT ELBOW. dECREASED SWELLING RIGHT FOREARM. - Psychiatric Exam Psychiatric exam: Normal Mood - Skin Skin Exam: Normal Color, Rash (PATIENT WITH ERYTHEMATOUS PRURITIC RASH SEEN ON THE LEFT WRIST, ON, ANTERIOR CHEST, AND RIGHT FOREARM.), Warm Assessment and Plan (1) Cellulitis of right arm Assessment & Plan: cellulitis right forearm and elbow improving. scaly rash around the elbow and forearm noted. Patient has increased range of motion and decreased swelling of the right arm and forearm. Status: Acute (2) Abscess, elbow Assessment & Plan: MRI findings noted. As per ORTHO no surgical intervention. CONTINUE PO ANTIBIOTICS. fOLLOW-UP WITH PMD/CLINIC PER PT. Status: Acute (3) Drug-induced skin rash Assessment & Plan: patient has generalized pruritic skin rash most probable secondary to Azactam. Azactam on hold since 02/15/17. We will DC IV Azactam. DC IV vancomycin. Will give 1 dose of Solu-Medrol 80 mg stat dose. Benadryl by mouth when necessary as ordered. Start patient on by mouth Bactrim 1 double strength twice a day and if tolerated continue Bactrim by mouth for 10 days..02/16/17 Case discussed with the resident. Status: Acute
--- NOTE | 2017-02-16 13:37 | CP.PCM.PN ---
Subjective - Date & Time of Evaluation Date of Evaluation: 02/16/17 Time of Evaluation: 09:40 - Subjective Subjective: clinically same s/p ortho dr mueller no surgical intervention at this time on iv abx dr juarez following Objective - Vital Signs/Intake and Output Vital Signs (last 24 hours): Temp Pulse Resp BP Pulse Ox 98.1 F 70 20 110/70 98 02/16/17 00:18 02/16/17 00:18 02/16/17 00:18 02/16/17 00:18 02/16/17 00:18 Intake and Output: 02/16/17 02/16/17 06:59 18:59 Intake Total 1520 Balance 1520 - Medications Medications: Current Medications Acetaminophen (Tylenol 325mg Tab) 650 mg PO Q6 PRN PRN Reason: Fever >100.4 F Diphenhydramine HCl (Benadryl) 50 mg PO Q8 PRN PRN Reason: Itching / Pruritus Last Admin: 02/16/17 11:00 Dose: 50 mg Docusate Sodium (Colace) 100 mg PO BID [facility] Last Admin: 02/16/17 09:45 Dose: Not Given Enoxaparin Sodium (Lovenox) 40 mg SC DAILY [facility] Last Admin: 02/16/17 10:59 Dose: 40 mg Sodium Chloride (Sodium Chloride 0.9%) 1,000 mls @ 60 mls/hr IV .[id number] [facility] Last Admin: 02/16/17 09:29 Dose: 60 mls/hr Aztreonam 1 gm/ Sodium (Chloride) 100 mls @ 100 mls/hr IVPB Q8H [facility] Last Admin: 02/15/17 16:58 Dose: 100 mls/hr Vancomycin/Sodium Chloride (Vancocin) 200 mls @ 140 mls/hr IVPB Q12H [facility] Stop: 02/21/17 22:01 Montelukast Sodium (Singulair) 10 mg PO HS [facility] Last Admin: 02/15/17 21:51 Dose: 10 mg Mupirocin (Bactroban Ointment) 0 gm TOP TID [facility] Last Admin: 02/16/17 11:01 Dose: 1 applic Ondansetron HCl (Zofran Inj) 4 mg IVP Q6 PRN PRN Reason: Nausea/Vomiting Pantoprazole Sodium (Protonix Ec Tab) 40 mg PO DAILY [facility] Last Admin: 02/16/17 10:59 Dose: 40 mg Sucralfate (Carafate Tab) 1 gm PO BIDAC [facility] Last Admin: 02/16/17 09:03 Dose: 1 gm Trimethoprim/Sulfamethoxazole (Bactrim Ds Tab) 1 tab PO Q12 [facility] - Labs Labs: 02/16/17 11:27 02/16/17 11:27 - Constitutional Appears: Well - Head Exam Head Exam: ATRAUMATIC, NORMAL INSPECTION, NORMOCEPHALIC - Eye Exam Eye Exam: EOMI, Normal appearance, PERRL Pupil Exam: NORMAL ACCOMODATION, PERRL - ENT Exam ENT Exam: Mucous Membranes Moist, Normal Exam - Neck Exam Neck Exam: Full ROM, Normal Inspection. absent: Lymphadenopathy - Respiratory Exam Respiratory Exam: Decreased Breath Sounds - Cardiovascular Exam Cardiovascular Exam: REGULAR RHYTHM, +S1, +S2 - GI/Abdominal Exam GI & Abdominal Exam: Soft, Diminished Bowel Sounds - Rectal Exam Rectal Exam: Deferred - Neurological Exam Neurological Exam: Alert, Awake, Oriented x3 Assessment and Plan (1) Abscess, elbow Status: Acute (2) Cellulitis of right arm Status: Acute (3) Drug-induced skin rash Status: Acute - Assessment and Plan (Free Text) Plan: spoke to dr. mueller who doesnot think that pt needs surg lets see with iv ntibiotic will discuss with veto kerns as ordreed
[2017-02-16] MEDS ORDERED: Vancomycin 1 gm/NS 200 ml 200 ML IVPB SCH ×2 (14:00→22:00)
[2017-02-16] MEDS: Tmp-Smz 800 mg-160 mg DS Tab PO SCH ×2 (14:39→21:23)
[2017-02-16] MEDS ORDERED: MethylPREDNISolone 40 mg Vial IVP ONE (16:31)
[2017-02-17] MEDS: Sodium Chloride 0.9% 1,000 ML IV SCH ×2 (07:09→17:21)
[2017-02-17 07:55] LABS: BASO % 0.3 % (0.0-2.0); EOS % 0.1 % (0.0-4.0); HEMATOCRIT 37.1 % (34.0-47.0); LYMPH # 2.2 K/uL (1.0-4.3); LYMPH % 16.3 % (20.0-40.0); MEAN CORPUSCULAR HEMOGLOBIN 27.4 pg (27.0-31.0); MEAN CORPUSCULAR HGB CONC 33.8 g/dL (33.0-37.0); MEAN PLATELET VOLUME 7.6 fL (7.2-11.7); MONO # 0.4 K/uL (0.0-0.8); NRBC % 0.2 % (0.0-2.0); RED CELL DISTRIBUTION WIDTH 15.1 % (11.5-14.5)
[2017-02-17 07:57] LABS: WHITE BLOOD COUNT 13.7 K/uL (4.8-10.8)
[2017-02-17 08:06] LABS: CHLORIDE 100 mmol/L (98-107); POTASSIUM 4.1 mmol/L (3.6-5.2); SODIUM 140 mmol/L (132-148)
[2017-02-17 08:08] LABS: GFR AFRICAN-AMERICAN > 60
[2017-02-17 08:09] LABS: ALB/GLOB RATIO 1.2 (1.0-2.1); ALKALINE PHOSPHATASE 82 U/L (38-126); ALT/SGPT 60 U/L (9-52); AST/SGOT 49 U/L (14-36); BILIRUBIN,TOTAL 0.3 mg/dL (0.2-1.3); BLOOD UREA NITROGEN 5 mg/dL (7-17); CARBON DIOXIDE 23 mmol/L (22-30); GLUCOSE,RANDOM 102 mg/dL (65-105)
[2017-02-17 08:10] LABS: CALCIUM 9.2 mg/dl (8.6-10.4)
--- NOTE | 2017-02-17 10:08 | CP.PCM.PN ---
Subjective - Date & Time of Evaluation Date of Evaluation: 02/17/17 Time of Evaluation: 09:20 - Subjective Subjective: clinically same iv rx in progress Objective - Vital Signs/Intake and Output Vital Signs (last 24 hours): Temp Pulse Resp BP Pulse Ox 97.7 F 68 20 110/65 98 02/17/17 07:49 02/17/17 07:49 02/17/17 07:49 02/17/17 07:49 02/17/17 07:49 Intake and Output: 02/17/17 02/17/17 06:59 18:59 Intake Total 1560 Balance 1560 - Medications Medications: Current Medications Acetaminophen (Tylenol 325mg Tab) 650 mg PO Q6 PRN PRN Reason: Fever >100.4 F Diphenhydramine HCl (Benadryl) 50 mg PO Q8 PRN PRN Reason: Itching / Pruritus Last Admin: 02/17/17 07:15 Dose: 50 mg Docusate Sodium (Colace) 100 mg PO BID [facility] Last Admin: 02/16/17 17:44 Dose: Not Given Enoxaparin Sodium (Lovenox) 40 mg SC DAILY [facility] Last Admin: 02/16/17 10:59 Dose: 40 mg Sodium Chloride (Sodium Chloride 0.9%) 1,000 mls @ 60 mls/hr IV .[id number] [facility] Last Admin: 02/17/17 07:09 Dose: 60 mls/hr Montelukast Sodium (Singulair) 10 mg PO HS [facility] Last Admin: 02/16/17 21:23 Dose: 10 mg Mupirocin (Bactroban Ointment) 0 gm TOP TID [facility] Last Admin: 02/16/17 18:06 Dose: 1 applic Ondansetron HCl (Zofran Inj) 4 mg IVP Q6 PRN PRN Reason: Nausea/Vomiting Pantoprazole Sodium (Protonix Ec Tab) 40 mg PO DAILY [facility] Last Admin: 02/16/17 10:59 Dose: 40 mg Sucralfate (Carafate Tab) 1 gm PO BIDAC [facility] Last Admin: 02/17/17 08:39 Dose: 1 gm Trimethoprim/Sulfamethoxazole (Bactrim Ds Tab) 1 tab PO Q12 [facility] Last Admin: 02/16/17 21:23 Dose: 1 tab - Labs Labs: 02/17/17 07:37 02/17/17 07:37 - Constitutional Appears: Well - Head Exam Head Exam: ATRAUMATIC, NORMAL INSPECTION, NORMOCEPHALIC - Eye Exam Eye Exam: EOMI, Normal appearance, PERRL Pupil Exam: NORMAL ACCOMODATION, PERRL - ENT Exam ENT Exam: Mucous Membranes Moist, Normal Exam - Neck Exam Neck Exam: Full ROM, Normal Inspection. absent: Lymphadenopathy - Respiratory Exam Respiratory Exam: Decreased Breath Sounds - Cardiovascular Exam Cardiovascular Exam: REGULAR RHYTHM, +S1, +S2 - GI/Abdominal Exam GI & Abdominal Exam: Soft, Diminished Bowel Sounds - Rectal Exam Rectal Exam: Deferred - Neurological Exam Neurological Exam: Alert, Awake, Oriented x3 Assessment and Plan (1) Abscess, elbow Status: Acute (2) Cellulitis of right arm Status: Acute (3) Drug-induced skin rash Status: Acute - Assessment and Plan (Free Text) Plan: saumya iv abx s/p dr mueller - no surgical intervention recommended f/u with dr larry kerns mx as ordered monitor for fever
--- NOTE | 2017-02-17 10:10 | CP.PCM.PN ---
Subjective - Date & Time of Evaluation Date of Evaluation: 02/17/17 Time of Evaluation: 08:00 - Subjective Subjective: Medicine Progress Note-Dr. Melendez's service. Patient seen and examined at bedside this AM. Patient states she is feeling better. Rash over hands and arms has improved since yesterday. Likely side effect of medication. Patient has improved range of motion of arms. She raises concern of redness over area of right arm that was not there before. No fevers, chills, diarrhea, abdominal pain. Objective - Vital Signs/Intake and Output Vital Signs (last 24 hours): Temp Pulse Resp BP Pulse Ox 97.7 F 68 20 110/65 98 02/17/17 07:49 02/17/17 07:49 02/17/17 07:49 02/17/17 07:49 02/17/17 07:49 Intake and Output: 02/17/17 02/17/17 06:59 18:59 Intake Total 1560 Balance 1560 - Medications Medications: Current Medications Acetaminophen (Tylenol 325mg Tab) 650 mg PO Q6 PRN PRN Reason: Fever >100.4 F Diphenhydramine HCl (Benadryl) 50 mg PO Q8 PRN PRN Reason: Itching / Pruritus Last Admin: 02/17/17 07:15 Dose: 50 mg Docusate Sodium (Colace) 100 mg PO BID [facility] Last Admin: 02/16/17 17:44 Dose: Not Given Enoxaparin Sodium (Lovenox) 40 mg SC DAILY [facility] Last Admin: 02/16/17 10:59 Dose: 40 mg Sodium Chloride (Sodium Chloride 0.9%) 1,000 mls @ 60 mls/hr IV .[id number] [facility] Last Admin: 02/17/17 07:09 Dose: 60 mls/hr Montelukast Sodium (Singulair) 10 mg PO HS [facility] Last Admin: 02/16/17 21:23 Dose: 10 mg Mupirocin (Bactroban Ointment) 0 gm TOP TID [facility] Last Admin: 02/16/17 18:06 Dose: 1 applic Ondansetron HCl (Zofran Inj) 4 mg IVP Q6 PRN PRN Reason: Nausea/Vomiting Pantoprazole Sodium (Protonix Ec Tab) 40 mg PO DAILY [facility] Last Admin: 02/16/17 10:59 Dose: 40 mg Sucralfate (Carafate Tab) 1 gm PO BIDAC [facility] Last Admin: 02/17/17 08:39 Dose: 1 gm Trimethoprim/Sulfamethoxazole (Bactrim Ds Tab) 1 tab PO Q12 [facility] Last Admin: 02/16/17 21:23 Dose: 1 tab - Labs Labs: 02/17/17 07:37 02/17/17 07:37 - Constitutional Appears: No Acute Distress - Eye Exam Eye Exam: EOMI, Normal appearance - ENT Exam ENT Exam: Mucous Membranes Moist - Neck Exam Neck Exam: Full ROM, Normal Inspection - Respiratory Exam Respiratory Exam: Clear to Ausculation Bilateral, NORMAL BREATHING PATTERN - Cardiovascular Exam Cardiovascular Exam: REGULAR RHYTHM, +S1, +S2 - GI/Abdominal Exam GI & Abdominal Exam: Soft, Normal Bowel Sounds - Extremities Exam Extremities Exam: Full ROM Additional comments: +desquamation of right anticubital area and skin surrounding right elbow. +erythematous non palpable uticaria like rash over dorsum of b/l hands - Back Exam Back Exam: NORMAL INSPECTION - Psychiatric Exam Psychiatric exam: Normal Affect, Normal Mood - Skin Skin Exam: Dry Assessment and Plan - Assessment and Plan (Free Text) Assessment: Severe Cellulitis of Right Upper Extremity ID consult- Dr. Harrington- help appreciated Held Aztreonam 1gm IVPB Q8h (started 02/14/17) due to possible allergic reaction As per ID, will start Bactrim DS Q12h. If patient tolerates it, will be discharged with Bactrim DS Q12h x 10 days Continue Vanco 1gm IVPB Q12h (started 02/13/17) Ortho Consult- Dr. Mckinney- no surgical intervention needed at this time. Benadryl 50mg PO Q8h PRN Oxycodone 1 tab PO Q4h PRN Mupirocin 2% ointment TID MRI Upper Extremity- 02/14/17- Prominent reticulation and edema seen within the circumferential subcutaneous soft tissues suggestive for a severe cellulitis. Within the posterior and lateral elbow, there is more confluent reticulation and edema with a fluid collection at that level measuring 5.7 x 2.4 x 7.5cm. This may represent developing phlegmon and or developing abscess collection. ( Please see full report) Transaminitis Hep panel negative Possibly secondary to antibiotics. AST/ALT today: 49/60 Prophylactic Measures Lovenox 40mg SC Daily Protonix 40mg PO Daily All management as per Dr. Melendez
--- NOTE | 2017-02-17 10:41 | PN ---
DATE: 02/17/2017 The case is discussed with Dr. Farhana Melendez. At this time, the patient is afebrile. The erythema over the right elbow has significantly subsided. Range of motion of the elbow is full and painless. She can flex and extend the elbow against resis tance. She has elevated white cell count. At this time she is not a candidate for any surgical intervention. I feel we are dealing with some c ellulitis, which is resolving, and SHE SEEMS TO HAVE ALLERGY TO SOME OF THE ANTIBIOTICS. Currently, she is getting some p.o. antibiotics. Will follow. Bonnie Mckinney MD cc: [id number] TT: 02/17/2017 10:41:12 Confirmation # [id number] Dictation # [id number] valorie
[2017-02-17] MEDS: Pantoprazole 40 mg EC Tab PO SCH (11:08)
[2017-02-17] MEDS: Enoxaparin 40 mg Syringe SC SCH (11:08)
[2017-02-17] MEDS: Tmp-Smz 800 mg-160 mg DS Tab PO SCH ×2 (11:08→22:08)
--- NOTE | 2017-02-17 17:39 | CP.PCM.PN ---
Subjective - Date & Time of Evaluation Date of Evaluation: 02/17/17 Time of Evaluation: 17:39 - Subjective Subjective: AFEBRILE CLINICALLY IMPROVING. DECREASED SWELLING OF THE RIGHT ELBOW AND FOREARM INCREASE RANGE OF MOTION RIGHT ARM Objective - Vital Signs/Intake and Output Vital Signs (last 24 hours): Temp Pulse Resp BP Pulse Ox 98.6 F 75 19 107/59 L 100 02/17/17 15:00 02/17/17 15:00 02/17/17 15:00 02/17/17 15:00 02/17/17 15:00 Intake and Output: 02/17/17 02/17/17 06:59 18:59 Intake Total 1560 440 Balance 1560 440 - Medications Medications: Current Medications Acetaminophen (Tylenol 325mg Tab) 650 mg PO Q6 PRN PRN Reason: Fever >100.4 F Diphenhydramine HCl (Benadryl) 50 mg PO Q8 PRN PRN Reason: Itching / Pruritus Last Admin: 02/17/17 07:15 Dose: 50 mg Docusate Sodium (Colace) 100 mg PO BID [facility] Last Admin: 02/17/17 17:21 Dose: 100 mg Enoxaparin Sodium (Lovenox) 40 mg SC DAILY [facility] Last Admin: 02/17/17 11:08 Dose: 40 mg Sodium Chloride (Sodium Chloride 0.9%) 1,000 mls @ 60 mls/hr IV .[id number] [facility] Last Admin: 02/17/17 17:21 Dose: Not Given Montelukast Sodium (Singulair) 10 mg PO HS [facility] Last Admin: 02/16/17 21:23 Dose: 10 mg Mupirocin (Bactroban Ointment) 0 gm TOP TID [facility] Last Admin: 02/17/17 17:20 Dose: 1 applic Ondansetron HCl (Zofran Inj) 4 mg IVP Q6 PRN PRN Reason: Nausea/Vomiting Pantoprazole Sodium (Protonix Ec Tab) 40 mg PO DAILY [facility] Last Admin: 02/17/17 11:08 Dose: 40 mg Sucralfate (Carafate Tab) 1 gm PO BIDAC [facility] Last Admin: 02/17/17 17:21 Dose: 1 gm Trimethoprim/Sulfamethoxazole (Bactrim Ds Tab) 1 tab PO Q12 [facility] Last Admin: 02/17/17 11:08 Dose: 1 tab - Labs Labs: 02/17/17 07:37 02/17/17 07:37 - Constitutional Appears: No Acute Distress - Head Exam Head Exam: NORMAL INSPECTION - Eye Exam Eye Exam: EOMI, PERRL - ENT Exam ENT Exam: Mucous Membranes Moist - Neck Exam Neck Exam: Normal Inspection - Respiratory Exam Respiratory Exam: Clear to Ausculation Bilateral, NORMAL BREATHING PATTERN - Cardiovascular Exam Cardiovascular Exam: REGULAR RHYTHM, +S1, +S2 - GI/Abdominal Exam GI & Abdominal Exam: Soft, Normal Bowel Sounds. absent: Organomegaly - Extremities Exam Extremities Exam: absent: Calf Tenderness, Pedal Edema - Neurological Exam Neurological Exam: Awake, CN II-XII Intact, Oriented x3 Additional comments: INCREASING CELLULITIS RIGHT ELBOW AND FOREARM. iNCREASING RANGE OF MOTION. - Psychiatric Exam Psychiatric exam: Normal Mood - Skin Skin Exam: Normal Color, Rash (RIGHT FOREARM AND ELBOW A IMPROVING. RASH LEFT WRIST ,ARM, ANTERIOR CHEST IMPROVING), Warm Assessment and Plan (1) Cellulitis of right arm Assessment & Plan: PATIENT TOLERATING BY MOUTH bACTRIM ONE DOUBLE STRENGTH TWICE A DAY OFF iv VANCOMYCIN SINCE YESTERDAY? HYPERSENSITIVITY/RASH CONTINUE PRESENT MANAGEMENT.WATCH FOR INCREASING RASH bENADRYL WHEN NECESSARY FOR ITCHING. Status: Acute (2) Abscess, elbow Assessment & Plan: IMPROVING NO SURGICAL INTERVENTION PER ORTHOPEDIC. Status: Acute (3) Drug-induced skin rash Assessment & Plan: PATIENT PROBABLY HAD RASH SECONDARY TO AZACTAM. Status: Acute
[2017-02-17 23:56] VITALS: RESP 20
[2017-02-18 07:32] LABS: BASO # 0.1 K/uL (0.0-0.2); BASO % 0.5 % (0.0-2.0); EOS # 0.9 K/uL (0.0-0.7); EOS % 7.6 % (0.0-4.0); HEMATOCRIT 36.3 % (34.0-47.0); LYMPH % 34.5 % (20.0-40.0); MEAN CORPUSCULAR HEMOGLOBIN 27.2 pg (27.0-31.0); MEAN CORPUSCULAR HGB CONC 33.2 g/dL (33.0-37.0); MEAN PLATELET VOLUME 7.6 fL (7.2-11.7); MONO # 0.5 K/uL (0.0-0.8); MONO % 4.6 % (0.0-10.0); RED CELL DISTRIBUTION WIDTH 15.2 % (11.5-14.5); WHITE BLOOD COUNT 11.6 K/uL (4.8-10.8)
[2017-02-18 07:38] VITALS: O2SAT 99
--- NOTE | 2017-02-18 07:55 | CP.PCM.PN ---
Subjective - Date & Time of Evaluation Date of Evaluation: 02/18/17 Time of Evaluation: 07:20 - Subjective Subjective: Medicine Note- Dr. Melendez's service Patient was seen and examined at bedside. Patient reports that she had no significant problems overnight except for itching. Patient was seen itching her left lateral proximal arm. Patient reports she does not know when it began, but she just received a benadryl prior to evaluation. No events overnight, per nursing. Objective - Vital Signs/Intake and Output Vital Signs (last 24 hours): Temp Pulse Resp BP Pulse Ox 97.7 F 74 20 97/58 L 99 02/18/17 07:36 02/18/17 07:36 02/18/17 07:36 02/18/17 07:36 02/18/17 07:36 Intake and Output: 02/18/17 02/18/17 06:59 18:59 Intake Total 870 Balance 870 - Medications Medications: Current Medications Acetaminophen (Tylenol 325mg Tab) 650 mg PO Q6 PRN PRN Reason: Fever >100.4 F Diphenhydramine HCl (Benadryl) 50 mg PO Q8 PRN PRN Reason: Itching / Pruritus Last Admin: 02/18/17 07:24 Dose: 50 mg Docusate Sodium (Colace) 100 mg PO BID [facility] Last Admin: 02/17/17 17:21 Dose: 100 mg Enoxaparin Sodium (Lovenox) 40 mg SC DAILY [facility] Last Admin: 02/17/17 11:08 Dose: 40 mg Montelukast Sodium (Singulair) 10 mg PO HS [facility] Last Admin: 02/17/17 22:08 Dose: 10 mg Mupirocin (Bactroban Ointment) 0 gm TOP TID [facility] Last Admin: 02/17/17 17:20 Dose: 1 applic Ondansetron HCl (Zofran Inj) 4 mg IVP Q6 PRN PRN Reason: Nausea/Vomiting Pantoprazole Sodium (Protonix Ec Tab) 40 mg PO DAILY [facility] Last Admin: 02/17/17 11:08 Dose: 40 mg Sucralfate (Carafate Tab) 1 gm PO BIDAC [facility] Last Admin: 02/17/17 17:21 Dose: 1 gm Trimethoprim/Sulfamethoxazole (Bactrim Ds Tab) 1 tab PO Q12 [facility] Last Admin: 02/17/17 22:08 Dose: 1 tab - Labs Labs: 02/18/17 07:10 02/17/17 07:37 - Constitutional Appears: Non-toxic, No Acute Distress - Head Exam Head Exam: ATRAUMATIC, NORMAL INSPECTION, NORMOCEPHALIC - Eye Exam Pupil Exam: NORMAL ACCOMODATION, PERRL - ENT Exam ENT Exam: Mucous Membranes Moist - Respiratory Exam Respiratory Exam: Clear to Ausculation Bilateral, NORMAL BREATHING PATTERN. absent: Prolonged Expiratory Phase, Rales, Rhonchi, Wheezes - Cardiovascular Exam Cardiovascular Exam: REGULAR RHYTHM, +S1, +S2 - Neurological Exam Neurological Exam: Alert, Awake, Oriented x3 - Psychiatric Exam Psychiatric exam: Normal Affect, Normal Mood - Skin Skin Exam: Dry, Intact, Normal Color, Warm Additional comments: Reduced area of swelling and dry skin along right elbow. Full range of motion. Left lateral proximal arm is slightly erythematous and warm to touch. Assessment and Plan - Assessment and Plan (Free Text) Assessment: Severe Cellulitis of Right Upper Extremity ID consult- Dr. Harrington- help appreciated Held Aztreonam 1gm IVPB Q8h (started 02/14/17) due to possible allergic reaction As per ID, Continue DS Q12h. If patient tolerates it, will be discharged with Bactrim DS Q12h x 10 days Discontinued Vanco 1gm IVPB Q12h (started 02/13/17) Ortho Consult- Dr. Mckinney- no surgical intervention needed at this time. Benadryl 50mg PO Q8h PRN Oxycodone 1 tab PO Q4h PRN Mupirocin 2% ointment TID MRI Upper Extremity- 02/14/17- Prominent reticulation and edema seen within the circumferential subcutaneous soft tissues suggestive for a severe cellulitis. Within the posterior and lateral elbow, there is more confluent reticulation and edema with a fluid collection at that level measuring 5.7 x 2.4 x 7.5cm. This may represent developing phlegmon and or developing abscess collection. ( Please see full report) Transaminitis Hep panel negative Possibly secondary to antibiotics. AST/ALT today: 49/60 Prophylactic Measures Lovenox 40mg SC Daily Protonix 40mg PO Daily All management as per Dr. Melendez Per Dr. Harrington, it is very unlikely that she is developing a new allergy to the Bactrim and is okay to be discharged. Patient instructed to return to hospital if symptoms worsen. As per Dr. Melendez, patient will be discharged home , to followup in his office on Thursday , 5pm. Patient will continue to take Bactrim DS Q12h for 10 days.
[2017-02-18 08:15] LABS: CHLORIDE 102 mmol/L (98-107)
[2017-02-18 08:16] LABS: POTASSIUM 4.1 mmol/L (3.6-5.2); SODIUM 137 mmol/L (132-148)
[2017-02-18 08:18] LABS: ALB/GLOB RATIO 1.2 (1.0-2.1); ALKALINE PHOSPHATASE 74 U/L (38-126); ALT/SGPT 72 U/L (9-52); AST/SGOT 71 U/L (14-36); BILIRUBIN,TOTAL 0.3 mg/dL (0.2-1.3); BLOOD UREA NITROGEN 7 mg/dL (7-17); CARBON DIOXIDE 20 mmol/L (22-30); GFR AFRICAN-AMERICAN > 60
[2017-02-18 08:19] LABS: GLUCOSE,RANDOM 82 mg/dL (65-105)
[2017-02-18] MEDS: Pantoprazole 40 mg EC Tab PO SCH (10:06)
[2017-02-18] MEDS: Enoxaparin 40 mg Syringe SC SCH ×2 (10:06→10:09)
[2017-02-18] MEDS: Tmp-Smz 800 mg-160 mg DS Tab PO SCH (10:06)
[2017-02-18 16:15] VITALS: BP 106/67; PULSE 85; TEMP 97.8
== END 2017-02-18 16:30 | disposition home or self-care (01) | DRG 278 ==
LOC: C.ER 08:28 → C.9E 11:13 → C.3T 13:59 → C.9E 14:52 → C.3T 15:40
PROVIDERS: ADMIT Internal Medicine Nephrology; ATTEND Internal Medicine Nephrology
DX: L03.113 Cellulitis of right upper limb (principal); E03.9 Hypothyroidism, unspecified; L29.8 Other pruritus

== ENCOUNTER 2018-08-31 12:56 | Emergency (ER) | payer MEDICAID ==
[2018-08-31 13:07] VITALS: BP 126/82; PULSE 108; RESP 18; TEMP 98.9; O2SAT 97
--- NOTE | 2018-08-31 14:03 | C.PDOC ---
History Of Present Illness 23 year old female presents to the ED for evaluation of right 5th digit DIP pain for the last few days. Patient reports she jammed her finger on a door a few days ago and the pain has not resolved since. Denies numbness, tingling, fever, and any other associated symptoms. Time Seen by Provider: 08/31/18 13:19 Chief Complaint (Nursing): Finger,Hand,&Wrist History Per: Patient History/Exam Limitations: no limitations Onset/Duration Of Symptoms: Days Current Symptoms Are (Timing): Still Present Past Medical History Reviewed: Historical Data, Nursing Documentation, Vital Signs Vital Signs: Last Vital Signs Temp 98.9 F 08/31/18 13:04 Pulse 108 H 08/31/18 13:04 Resp 18 08/31/18 13:04 BP 126/82 08/31/18 13:04 Pulse Ox 97 08/31/18 13:04 - Medical History PMH: Hypothyroidism Denies: Chronic Kidney Disease Family History: States: Unknown Family Hx - Social History Hx Tobacco Use: No Hx Alcohol Use: No Hx Substance Use: No - Immunization History Hx Tetanus Toxoid Vaccination: No Hx Influenza Vaccination: No Hx Pneumococcal Vaccination: No Review Of Systems Except As Marked, All Systems Reviewed And Found Negative. Musculoskeletal: Positive for: Other (right 5th DIP pain.) Neurological: Negative for: Weakness, Numbness, Incoordination Physical Exam - Physical Exam Appears: Non-toxic, No Acute Distress Skin: Warm, Dry Head: Atraumatic, Normacephalic Eye(s): bilateral: Normal Inspection Extremity: Normal ROM (to the right digits. ), Tenderness (mild tenderness to palpation to the right 5th DIP digit. ), Capillary Refill (less than 2 seconds.), Other (bluish 5th digit nail, DIP.) Pulses: Left Radial: Normal, Right Radial: Normal Neurological/Psych: Oriented x3, Normal Speech, Normal Motor, Normal Sensation, Normal Reflexes ED Course And Treatment O2 Sat by Pulse Oximetry: 97 (RA) Pulse Ox Interpretation: Normal Medical Decision Making Medical Decision Making: Progress/Update: Splint applied. Patient stable for discharge home. Prescribed Motrin. Disposition Counseled Patient/Family Regarding: Diagnosis, Need For Followup, Rx Given - Disposition Disposition: HOME/ ROUTINE Disposition Time: 14:01 Condition: STABLE Prescriptions: Ibuprofen [Motrin] 600 mg PO TID #15 tab Instructions: Common Finger Injuries Forms: [facility] ([facility]), General Discharge Instructions - POA Present On Arrival: None - Clinical Impression Clinical Impression: Injury to fingernail of right hand - Scribe Statement The provider has reviewed the documentation as recorded by the Scribe (Sanam Hummel) Provider Attestation: All medical record entries made by the Scribe were at my direction and personally dictated by me. I have reviewed the chart and agree that the record accurately reflects my personal performance of the history, physical exam, medical decision making, and the department course for this patient. I have also personally directed, reviewed, and agree with the discharge instructions and disposition.
== END 2018-08-31 14:26 | disposition home or self-care (01) ==
LOC: C.ER 12:56
DX: S69.91XA Unspecified injury of right wrist, hand and finger(s), initial encounter (principal); W23.0XXA Caught, crushed, jammed, or pinched between moving objects, initial encounter; Y92.9 Unspecified place or not applicable